=== PATIENT | male | born 1985 | race Caucasian/White ===

== ENCOUNTER 2025-01-19 16:23 | Emergency (ER) | payer SELFPAY ==
[~2025-01-19] VITALS: Ht 170.2 cm; Wt 73.0 kg
[2025-01-19 16:26] VITALS: O2SAT 100
[2025-01-19 16:44] VITALS: BP 130/79; PULSE 98; RESP 18; TEMP 36.9; O2SAT 100
== END 2025-01-19 16:44 | disposition home or self-care (01) ==
LOC: ER 16:23
DX: F15.129 Other stimulant abuse with intoxication, unspecified (principal); Z79.899 Other long term (current) drug therapy
CPT/HCPCS: 99283